=== PATIENT | male | born 1985 | race Two or more races ===

== ENCOUNTER 2019-04-25 19:16 | Emergency (ER) | payer SELFPAY ==
[~2019-04-25] VITALS: Ht 167.6 cm; Wt 95.3 kg
[2019-04-25 19:35] VITALS: BP 137/95
[2019-04-25] MEDS ORDERED: HYDROcodone-ACET 10/325MG TAB PO ONE (21:15)
[2019-04-25] MEDS ORDERED: BACLOFEN 10 MG TAB PO ONE (21:15)
== END 2019-04-25 23:20 | disposition home or self-care (01) ==
LOC: ER 19:16
DX: S92.902A Unspecified fracture of left foot, initial encounter for closed fracture (principal); W19.XXXA Unspecified fall, initial encounter; Y93.89 Activity, other specified; Y99.8 Other external cause status; Y92.89 Other specified places as the place of occurrence of the external cause
CPT/HCPCS: 71111; 73080; 73630; 99283; L3260